=== PATIENT | female | born 1945 | race Caucasian/White ===

== ENCOUNTER 2017-01-27 18:20 | Emergency (ER) | payer MEDICARE, OTHER ==
[~2017-01-27] VITALS: Ht 165.1 cm; Wt 72.0 kg
[2017-01-27 18:30] VITALS: BP 140/76; PULSE 64; RESP 17; TEMP 99.3; O2SAT 97
[2017-01-27 18:43] VITALS: BP 142/76
[2017-01-27] MEDS ORDERED: ATOR40TA16 PO (18:54)
[2017-01-27] MEDS ORDERED: OMEP40CA2 PO (18:54)
[2017-01-27] MEDS ORDERED: METO25TA3 PO (18:54)
[2017-01-27] MEDS ORDERED: RANI300T PO (18:54)
[2017-01-27] MEDS ORDERED: SERT25TA83 PO (18:54)
[2017-01-27] MEDS ORDERED: TRAZ50TA12 PO (18:54)
[2017-01-27] MEDS ORDERED: CIPR-9 PO (18:54)
[2017-01-27] MEDS ORDERED: TRIL150T PO (18:54)
--- NOTE | 2017-01-27 18:56 | PD ---
HPI Chief Complaint: GI Complaint Time Seen by Provider: 18:39 Travel History International Travel<30 days: No Contact w/Intl Traveler<30days: No Traveled to known affect area: No History of Present Illness HPI 8-year-old female is complaining of pain across her abdomen. The pain seems worse on the left side. The pain has been going on for about 2 weeks. She saw her doctor and has been on antibiotics for a week for suspected diverticulitis. She has had a partial left nephrectomy. She had kidney cancer in 2010. She has not had a recent follow-up though she had done well immediately after the surgery. She feels like her stomach is swollen. She feels somewhat weak. She has a history of hypertension. PFS Past Medical History High Cholesterol: Yes Diminished Hearing: No Diverticulitis: Yes GERD: Yes Hypertension: Yes Tetanus Vaccination: Unknown ?: Not Past Surgical History Genitourinary Surgery: Yes (LEFT KIDNEY) Hysterectomy: Yes Social History Alcohol Use: No Tobacco Use: No Substance Use: No Allergies-Medications Reported Meds & Prescriptions Reported Meds & Active Scripts Active Reported Atorvastatin (Atorvastatin Calcium) 40 Mg Tab 40 Mg PO HS Trileptal (Oxcarbazepine) 150 Mg Tab 150 Mg PO DAILY Omeprazole 40 Mg Cap 40 Mg PO DAILY Sertraline (Sertraline HCl) 25 Mg Tab 25 Mg PO DAILY Metoprolol Tartrate 25 Mg Tab 25 Mg PO BID Cipro (Ciprofloxacin HCl) 500 Mg Tab 500 Mg PO BID Ranitidine (Ranitidine HCl) 300 Mg Tab 300 Mg PO DAILY Trazodone (Trazodone HCl) 50 Mg Tab 50 Mg PO HS Review of Systems General / Constitutional: No: Fever, Chills Eyes: No: Diploplia, Blurred Vision HENT: No: Headaches, Vertigo Cardiovascular: No: Chest Pain or Discomfort, Palpitations Respiratory: No: Cough, Shortness of Breath Gastrointestinal: Positive: Nausea, Abdominal Pain Genitourinary: No: Urgency, Frequency Musculoskeletal: No: Myalgias, Arthralgias Skin: No Rash Neurologic: Positive: Weakness Endocrine: No: Heat Intolerance Hematologic/Lymphatic: No: Easy Bruising Physical Exam Narrative GENERAL: Well-developed female SKIN: Focused skin assessment warm/dry. HEAD: Atraumatic. Normocephalic. EYES: Pupils equal and round. No scleral icterus. No injection or drainage. ENT: No nasal bleeding or discharge. Mucous membranes pink and moist. NECK: Trachea midline. No JVD. CARDIOVASCULAR: Regular rate and rhythm. No murmur appreciated. RESPIRATORY: No accessory muscle use. Clear to auscultation. Breath sounds equal bilaterally. GASTROINTESTINAL: Abdomen soft, mild left-sided tenderness, nondistended. Hepatic and splenic margins not palpable. MUSCULOSKELETAL: No obvious deformities. No clubbing. No cyanosis. No edema. NEUROLOGICAL: Awake and alert. No obvious cranial nerve deficits. Motor grossly within normal limits. Normal speech. PSYCHIATRIC: Appropriate mood and affect; insight and judgment normal Data Data Last Documented VS Vital Signs Date Time Temp Pulse Resp B/P (MAP) Pulse Ox O2 Delivery O2 Flow Rate FiO2 01/27/17 18:46 16 01/27/17 18:43 142/76 (98) 01/27/17 18:30 99.3 64 97 Orders Orders Complete Blood Count With Diff (01/27/17 18:53) Comprehensive Metabolic Panel (01/27/17 18:53) Lipase (01/27/17 18:53) Urinalysis - C+S If Indicated (01/27/17 18:53) Ct Abd/Pel W Iv Contrast(Rout) (01/27/17 18:53) Iodixanol 320 Inj (Rad Ct) (Visipaque 32 (01/27/17 19:49) Labs Laboratory Tests Test 01/27/17 19:15 White Blood Count 6.8 TH/MM3 Red Blood Count 3.82 MIL/MM3 Hemoglobin 12.4 GM/DL Hematocrit 35.2 % Mean Corpuscular Volume 92.1 FL Mean Corpuscular Hemoglobin 32.4 PG Mean Corpuscular Hemoglobin Concent 35.2 % Red Cell Distribution Width 12.2 % Platelet Count 259 TH/MM3 Mean Platelet Volume 7.5 FL Neutrophils (%) (Auto) 75.7 % Lymphocytes (%) (Auto) 16.3 % Monocytes (%) (Auto) 5.0 % Eosinophils (%) (Auto) 2.5 % Basophils (%) (Auto) 0.5 % Neutrophils # (Auto) 5.1 TH/MM3 Lymphocytes # (Auto) 1.1 TH/MM3 Monocytes # (Auto) 0.3 TH/MM3 Eosinophils # (Auto) 0.2 TH/MM3 Basophils # (Auto) 0.0 TH/MM3 CBC Comment DIFF FINAL Differential Comment Urine Color STRAW Urine Turbidity CLEAR Urine pH 5.5 Urine Specific [place] 1.010 Urine Protein NEG mg/dL Urine Glucose (UA) NEG mg/dL Urine Ketones NEG mg/dL Urine Occult Blood NEG Urine Nitrite NEG Urine Bilirubin NEG Urine Leukocyte Esterase TRACE Urine RBC 0-2 /hpf Urine WBC 3-5 /hpf Urine Squamous Epithelial Cells 0-5 /hpf Urine Bacteria NONE /hpf Microscopic Urinalysis Comment CULT NOT INDICATED Blood Urea Nitrogen 15 MG/DL Creatinine 0.75 MG/DL Random Glucose 122 MG/DL Total Protein 7.3 GM/DL Albumin 3.9 GM/DL Calcium Level 8.5 MG/DL Alkaline Phosphatase 88 U/L Aspartate Amino Transf (AST/SGOT) 20 U/L Alanine Aminotransferase (ALT/SGPT) 35 U/L Total Bilirubin 0.2 MG/DL Sodium Level 127 MEQ/L Potassium Level 3.5 MEQ/L Chloride Level 94 MEQ/L Carbon Dioxide Level 23.0 MEQ/L Anion Gap 10 MEQ/L Estimat Glomerular Filtration Rate 76 ML/MIN Lipase 236 U/L [facility] Medical Decision Making Medical Screen Exam Complete: Yes Emergency Medical Condition: Yes Medical Record Reviewed: Yes Differential Diagnosis Differential includes nonspecific abdominal pain, diverticulitis, gastroenteritis Narrative Course White count is normal. CT scan is read as negative with exception of partial nephrectomy. Etiology for the pain has not been determined. She may have partially treated diverticulitis. I have recommended that she continue the antibiotic and follow up with Dr. Baez who may send her to a GI doctor. I will prescribe Bentyl Diagnosis Primary Impression: Abdominal pain Qualified Codes: R10.84 - Generalized abdominal pain Scripts Dicyclomine (Dicyclomine) 20 Mg Tab 20 MG PO TID Y for Bowel Management, #20 TAB 0 Refills Prov: Wilfred Darnell MD 01/27/17 Disposition: DISCHARGE HOME Condition: Stable Wilfred Darnell MD Jan 27, 2017 18:56
[2017-01-27 19:21] LABS: BLOOD, URINE NEG (NEG); GLUCOSE,URINE NEG (NEG); KETONE, URINE NEG (NEG); NITRITE,URINE NEG (NEG); PH, URINE 5.5 (5.0-8.5)
[2017-01-27 19:27] LABS: AUTOMATED NEUTROPHIL # 5.1 TH/MM3 (1.8-7.7); BASOPHIL % 0.5 % (0.0-2.0); EOSINOPHIL # 0.2 TH/MM3 (0-0.4); EOSINOPHIL % 2.5 % (0.0-4.0); HEMATOCRIT 35.2 % (35.0-46.0); LYMPH % 16.3 % (9.0-44.0); LYMPHOCYTE # 1.1 TH/MM3 (1.0-4.8); MEAN CELL VOLUME 92.1 FL (80.0-100.0); MEAN CORPUSCULAR HEMOGLOBIN 32.4 PG (27.0-34.0); MEAN CORPUSCULAR HGB CONC 35.2 % (32.0-36.0); NEUT % 75.7 % (16.0-70.0); PLATELET COUNT 259 TH/MM3 (150-450); RED BLOOD COUNT 3.82 MIL/MM3 (4.00-5.30); RED CELL DISTRIBUTION WIDTH 12.2 % (11.6-17.2); WHITE BLOOD COUNT 6.8 TH/MM3 (4.0-11.0)
[2017-01-27 19:28] LABS: CHLORIDE 94 MEQ/L (98-107); HEMO FLAGS DIFF FINAL; POTASSIUM 3.5 MEQ/L (3.5-5.1); SODIUM (NA) 127 MEQ/L (136-145)
[2017-01-27 19:32] LABS: ANION GAP 10 MEQ/L (5-15); BLOOD UREA NITROGEN 15 MG/DL (7-18)
[2017-01-27 19:33] LABS: URINE COLOR STRAW (YELLW/STRAW)
[2017-01-27 19:34] LABS: COMMENT (UR) CULT NOT INDICATED; CULTURE IF INDICATED CULT NOT INDICATED; RBC, URINE 0-2 /hpf (0-3); SQUAMOUS EPITHELIAL CELL URINE 0-5 /hpf (0-5)
[2017-01-27 19:35] LABS: ALT (GPT) 35 U/L (10-53); AST (GOT) 20 U/L (15-37); GLOMERULAR FILTRATION RATE 76 ML/MIN (>89)
[2017-01-27 19:36] LABS: TOTAL BILIRUBIN ADULT 0.2 MG/DL (0.2-1.0)
[2017-01-27 19:38] LABS: ALKALINE PHOSPHATASE 88 U/L (45-117)
[2017-01-27] MEDS ORDERED: IODIXANOL 320 MG/ML 10 ML VIAL (for Rad CT) IV ONE (19:49)
--- NOTE | 2017-01-27 20:16 | RADRPT ---
EXAM DATE/TIME: 01/27/2017 19:45 [facility] COMPARISON: No previous studies available for comparison. INDICATIONS : Left sided abdomen pain. IV CONTRAST: 50 cc Visipaque (iodixanol) IV ORAL CONTRAST: No oral contrast ingested. RADIATION DOSE: 11.92 CTDIvol (mGy) MEDICAL HISTORY : Hypertension. Diverticulitis. Carcinoma, renal. SURGICAL HISTORY : Partial nephrectomy, left. ENCOUNTER: Initial ACUITY: 2 weeks PAIN SCALE: 5/10 LOCATION: Left abdomen TECHNIQUE: Volumetric scanning of the abdomen and pelvis was performed. Using automated exposure control and ad justment of the mA and/or kV according to patient size, radiation dose was kept as low as reasonably achievable to obtain optimal diagnostic quality images. DICOM format image data is available electro nically for review and comparison. FINDINGS: LOWER LUNGS: The visualized lower lungs are clear. LIVER: Homogeneous density without lesion. There is no dilation of the biliary tree. No calcified gallston es. SPLEEN: Normal size without lesion. PANCREAS: Within normal limits. KIDNEYS: Partial left nephrectomy. 2 subcentimeter cysts right kidney. The kidneys are functioning.. There is no mass, stone or hydronephrosis. ADRENAL GLANDS: Within normal limits. VASCULAR: There is no aortic aneurysm. BOWEL/MESENTERY: The stomach, small bowel, and colon demonstrate no acute abnormality. There is no free intraperitone al air or fluid. The appendix is unremarkable. No inflammatory changes. ABDOMINAL WALL: Within normal limits. RETROPERITONEUM: There is no lymphadenopathy. BLADDER: No wall thickening or mass. REPRODUCTIVE: Within normal limits. INGUINAL: There is no lymphadenopathy or hernia. MUSCULOSKELETAL: Within normal limits for patient age. CONCLUSION: 1. Partial left nephrectomy. No evidence of hydronephrosis. 2. Otherwise, unremarkable exam for patient's age. Jose Fabian MD on January 27, 2017 at 20:11 Board Certified Radiologist. This report was verified electronically.
[2017-01-27] MEDS ORDERED: DICY20TA10 PO (20:26)
[2017-01-27 20:38] VITALS: BP 145/84
== END 2017-01-27 20:38 | disposition home or self-care (01) ==
LOC: PHED 18:20
DX: R10.84 Generalized abdominal pain (principal); I10 Essential (primary) hypertension; E78.00 Pure hypercholesterolemia, unspecified; K21.9 Gastro-esophageal reflux disease without esophagitis; Z85.528 Personal history of other malignant neoplasm of kidney
CPT/HCPCS: 74177; 80053; 81001; 83690; 85025; 99285; Q9967

== ENCOUNTER 2017-07-28 18:09 | Emergency (ER) | payer MEDICARE, OTHER ==
[~2017-07-28] VITALS: Ht 165.1 cm; Wt 69.8 kg
[~2017-07-28 18:09] MED LIST: ATOR40TA16 PO; CIPR-9 PO; DICY20TA10 PO; METO25TA3 PO; OMEP40CA2 PO; RANI300T PO; SERT25TA83 PO; TRAZ50TA12 PO; TRIL150T PO
[2017-07-28 18:18] VITALS: BP 181/83; PULSE 63; RESP 16; TEMP 98.2; O2SAT 96
[2017-07-28] MEDS ORDERED: CYMB30CA PO (19:12)
[2017-07-28] MEDS ORDERED: METO25TA3 PO (19:12)
[2017-07-28] MEDS ORDERED: RANI300T PO ×2 (19:12→19:15)
[2017-07-28] MEDS ORDERED: OMEP40CA2 (19:12)
[2017-07-28] MEDS ORDERED: TRIL150T PO (19:12)
[2017-07-28] MEDS ORDERED: TRAZ50TA12 PO (19:12)
[2017-07-28] MEDS ORDERED: AMOX875T PO (19:15)
[2017-07-28] MEDS ORDERED: MECL-62 PO (19:15)
[2017-07-28 19:23] VITALS: BP 138/77; PULSE 60; RESP 16; O2SAT 98
[2017-07-28] MEDS ORDERED: ONDANSETRON HCL 4 MG/2 ML VIAL IVP ONE (20:30)
[2017-07-28] MEDS ORDERED: SODIUM CHLORIDE 0.9% FLUSH 10 ML FLUSH IVF PRN (20:30)
--- NOTE | 2017-07-28 20:30 | PD ---
HPI Chief Complaint: Dizziness Time Seen by Provider: 20:25 Travel History International Travel<30 days: No Contact w/Intl Traveler<30days: No Traveled to known affect area: No History of Present Illness HPI 72-year-old female presents to the emergency department by private transportation for complaint of intermittent dizziness over the past 1-2 weeks since diagnosis of pneumonia. Patient is currently on amoxicillin and will take her last dose of amoxicillin tomorrow. Patient is also had left ear discomfort and some right eye intermittent shooting pain. No headache no visual disturbance no double vision or loss of vision no photophobia. Patient states dizziness is intermittent brief and rapid and duration. Patient states at times it makes her feel off balance. Patient has been followed in the urgent care and was instructed to come to the emergency room because she may need to have a CT. Patient denies any fever or chills. Patient denies any shortness of breath. Patient denies any chest pain or pleuritic chest pain. Patient denies any palpitations or diaphoresis. Patient had no nausea or vomiting. Patient denies any sinus pressure or drainage or sore throat. Patient has had no change in her chronic medications which include Cymbalta for history of depression and trazodone for insomnia. Patient denies any upper extremity or lower extremity numbness tingling or weakness or ataxia of gait. Patient has had no sudden onset worst of her thunderclap headache. No report of neck pain or injury. [facility] Past Medical History Narrative Medical Dyslipidemia depression insomnia hypertension GERD diverticulitis; hysterectomy , partial left nephrectomy; occasional alcohol use; nursing notes reviewed High Cholesterol: Yes Diminished Hearing: No Diverticulitis: Yes GERD: Yes Hypertension: Yes Tetanus Vaccination: < 5 Years Influenza Vaccination: No ?: Not Past Surgical History Genitourinary Surgery: Yes (LEFT KIDNEY) Hysterectomy: Yes Other Surgery: Yes (part of left kidney removed) Social History Alcohol Use: Yes (glass of wine QD) Tobacco Use: No Substance Use: No Allergies-Medications (Allergen,Severity, Reaction): Coded Allergies: Sulfa (Sulfonamide Antibiotics) (Verified Allergy, Unknown, TOLD IN 60'S, 07/28/17) Reported Meds & Prescriptions Reported Meds & Active Scripts Active Reported Meclizine (Meclizine HCl) 25 Mg Tab 25 Mg PO DIRECTED PRN Amoxicillin 875 Mg Tab 875 Mg PO BID Ranitidine (Ranitidine HCl) 300 Mg Tab 300 Mg PO DAILY Trileptal (Oxcarbazepine) 150 Mg Tab 75 Mg PO DAILY Trazodone (Trazodone HCl) 50 Mg Tab 50 Mg PO HS Omeprazole 40 Mg Cap 40 Mg DAILY Metoprolol Tartrate 25 Mg Tab 25 Mg PO DAILY Cymbalta DR (Duloxetine HCl) 30 Mg Capdr 30 Mg PO DAILY Review of Systems Except as stated in HPI: all other systems reviewed are Neg General / Constitutional: No: Fever, Chills HENT: Positive: Vertigo, Lightheadedness, No: Headaches, Congestion Cardiovascular: No: Chest Pain or Discomfort, Palpitations, Diaphoresis, Syncope Respiratory: No: Shortness of Breath Gastrointestinal: No: Nausea, Vomiting Genitourinary: No: Dysuria Skin: No Rash Neurologic: Positive: Weakness, Dizziness, No: Syncope, Focal Abnormalities, Coordination Problem, Change in Mentation, Slurred Speech, Paresthesia Psychiatric: No: Anxiety Hematologic/Lymphatic: No: Lymph Node Enlargement Physical Exam Narrative GENERAL: Well-developed well-nourished female in no acute distress or respiratory distress; GCS 15 SKIN: Warm and dry. HEAD: Atraumatic. Normocephalic. EYES: Pupils equal and round. No scleral icterus. No injection or drainage. ENT: No nasal bleeding or discharge. Mucous membranes pink and moist. NECK: Trachea midline. No JVD. CARDIOVASCULAR: Regular rate and rhythm. RESPIRATORY: No accessory muscle use. Clear to auscultation. Breath sounds equal bilaterally. GASTROINTESTINAL: Abdomen soft, non-tender, nondistended. Hepatic and splenic margins not palpable. MUSCULOSKELETAL: Extremities without clubbing, cyanosis, or edema. No obvious deformities. NEUROLOGICAL: Awake and alert. No obvious cranial nerve deficits. Motor grossly within normal limits. Five out of 5 muscle strength in the arms and legs. No limb ataxia. No pronator drift. DTRs 2+ and equal bilaterally without clonus. Sensory exam grossly intact as tested. Normal speech. PSYCHIATRIC: Appropriate mood and affect; insight and judgment normal. Data Data Last Documented VS Vital Signs Date Time Temp Pulse Resp B/P (MAP) Pulse Ox O2 Delivery O2 Flow Rate FiO2 07/28/17 23:15 65 18 150/82 (104) 97 07/28/17 21:13 Room Air 07/28/17 18:18 98.2 Orders Orders Electrocardiogram (07/28/17 20:25) Complete Blood Count With Diff (07/28/17 20:25) Comprehensive Metabolic Panel (07/28/17 20:25) Magnesium (Mg) (07/28/17 20:25) Ckmb (Isoenzyme) Profile (07/28/17 20:25) Troponin I (07/28/17 20:25) Act Partial Throm Time (Ptt) (07/28/17 20:25) Prothrombin Time / Inr (Pt) (07/28/17 20:25) Urinalysis - C+S If Indicated (07/28/17 20:25) Chest, Single Ap (07/28/17 20:25) Ct Brain W/O Iv Contrast(Rout) (07/28/17 20:25) Ecg Monitoring (07/28/17 20:25) Iv Access Insert/Monitor (07/28/17 20:25) Oximetry (07/28/17 20:25) Ondansetron Inj (Zofran Inj) (07/28/17 20:30) Sodium Chloride 0.9% Flush (Ns Flush) (07/28/17 20:30) Thyroid Stimulating Hormone (07/28/17 20:25) Labs Laboratory Tests Test 07/28/17 20:49 07/28/17 20:52 White Blood Count 5.5 TH/MM3 Red Blood Count 3.88 MIL/MM3 Hemoglobin 12.2 GM/DL Hematocrit 36.0 % Mean Corpuscular Volume 92.8 FL Mean Corpuscular Hemoglobin 31.5 PG Mean Corpuscular Hemoglobin Concent 33.9 % Red Cell Distribution Width 12.3 % Platelet Count 258 TH/MM3 Mean Platelet Volume 8.1 FL Neutrophils (%) (Auto) 53.6 % Lymphocytes (%) (Auto) 30.4 % Monocytes (%) (Auto) 7.9 % Eosinophils (%) (Auto) 7.3 % Basophils (%) (Auto) 0.8 % Neutrophils # (Auto) 3.0 TH/MM3 Lymphocytes # (Auto) 1.7 TH/MM3 Monocytes # (Auto) 0.4 TH/MM3 Eosinophils # (Auto) 0.4 TH/MM3 Basophils # (Auto) 0.0 TH/MM3 CBC Comment DIFF FINAL Differential Comment Prothrombin Time 10.0 SEC Prothromb Time International Ratio 1.0 RATIO Activated Partial Thromboplast Time 26.8 SEC Blood Urea Nitrogen 16 MG/DL Creatinine 0.85 MG/DL Random Glucose 93 MG/DL Total Protein 7.5 GM/DL Albumin 4.0 GM/DL Calcium Level 8.5 MG/DL Magnesium Level 2.4 MG/DL Alkaline Phosphatase 82 U/L Aspartate Amino Transf (AST/SGOT) 20 U/L Alanine Aminotransferase (ALT/SGPT) 27 U/L Total Bilirubin 0.2 MG/DL Sodium Level 138 MEQ/L Potassium Level 3.7 MEQ/L Chloride Level 104 MEQ/L Carbon Dioxide Level 28.9 MEQ/L Anion Gap 5 MEQ/L Estimat Glomerular Filtration Rate 66 ML/MIN Total Creatine Kinase 77 U/L Troponin I LESS THAN 0.02 NG/ML Thyroid Stimulating Hormone 3rd Gen 1.710 uIU/ML Urine Color YELLOW Urine Turbidity CLEAR Urine pH 7.0 Urine Specific [place] 1.011 Urine Protein NEG mg/dL Urine Glucose (UA) NEG mg/dL Urine Ketones NEG mg/dL Urine Occult Blood NEG Urine Nitrite NEG Urine Bilirubin NEG Urine Leukocyte Esterase SMALL Urine WBC 0-2 /hpf Urine Squamous Epithelial Cells 0-5 /hpf Microscopic Urinalysis Comment CULT NOT INDICATED MDM Medical Decision Making Medical Screen Exam Complete: Yes Emergency Medical Condition: Yes Medical Record Reviewed: Yes Interpretation(s) EKG: Sinus bradycardia rate [address] elevation noted rare unifocal PVC Last Impressions Head CT 07/28/172024 Signed Impressions: Service Date/Time: Friday, July 28, 2017 20:55 - CONCLUSION: 1. No acute intracranial abnormality. Kevan Noel MD Chest X-Ray 07/28/172024 Signed Impressions: Service Date/Time: Friday, July 28, 2017 20:46 - CONCLUSION: 1. Chronic appearing interstitial changes and mild cardiomegaly. No acute abnormality. Kevan Noel MD CBC & BMP Diagram 07/28/17 20:49 Total Protein 7.5, Albumin 4.0, Calcium Level 8.5, Magnesium Level 2.4, Alkaline Phosphatase 82, Aspartate Amino Transf (AST/SGOT) 20, Alanine Aminotransferase (ALT/SGPT) 27, Total Bilirubin 0.2 Vital Signs Date Time Temp Pulse Resp B/P (MAP) Pulse Ox O2 Delivery O2 Flow Rate FiO2 07/28/17 23:15 65 18 150/82 (104) 97 07/28/17 21:13 60 18 163/80 (107) 98 Room Air 07/28/17 20:52 97 Room Air 07/28/17 19:23 60 16 138/77 (97) 98 Room Air 07/28/17 18:18 98.2 63 16 181/83 (115) 96 Differential Diagnosis Dizziness, vertigo, Mnire's, sinusitis, viral syndrome, TIA, CVA, arrhythmia, thyroid dysfunction Narrative Course Patient placed on teletypesetter monitor IV access obtained specimens collected and sent for resulting Diagnosis Primary Impression: Dizziness Referrals: Primary Care Physician call for appointment Patient Instructions: General Instructions Additional Instructions: Increase fluid hydration Take medication as prescribed as needed for dizziness Take medication as prescribed as needed for nausea and/or vomiting Return to the emergency department for any concerns or change in condition Med/Other Pt SpecificInfo: Prescription(s) given Scripts Ondansetron Odt (Zofran Odt) 4 Mg Tab 4 MG SL Q6HR Y for Nausea/Vomiting, #10 TAB 0 Refills Prov: Brigette Barrera MD 07/28/17 Disposition: 01 DISCHARGE HOME Condition: Stable Brigette Barrera MD Jul 28, 2017 20:30
[2017-07-28 20:52] VITALS: O2SAT 97
[2017-07-28 21:00] LABS: BASOPHIL % 0.8 % (0.0-2.0); EOSINOPHIL # 0.4 TH/MM3 (0-0.4); EOSINOPHIL % 7.3 % (0.0-4.0); HEMOGLOBIN 12.2 GM/DL (11.6-15.3); LYMPH % 30.4 % (9.0-44.0); LYMPHOCYTE # 1.7 TH/MM3 (1.0-4.8); MEAN CELL VOLUME 92.8 FL (80.0-100.0); MEAN CORPUSCULAR HEMOGLOBIN 31.5 PG (27.0-34.0); MEAN CORPUSCULAR HGB CONC 33.9 % (32.0-36.0); MEAN PLATELET VOLUME 8.1 FL (7.0-11.0); MONO % 7.9 % (0.0-8.0); MONOCYTE # 0.4 TH/MM3 (0-0.9); NEUT % 53.6 % (16.0-70.0); PLATELET COUNT 258 TH/MM3 (150-450); RED BLOOD COUNT 3.88 MIL/MM3 (4.00-5.30); RED CELL DISTRIBUTION WIDTH 12.3 % (11.6-17.2); WHITE BLOOD COUNT 5.5 TH/MM3 (4.0-11.0)
[2017-07-28 21:04] LABS: CHLORIDE 104 MEQ/L (98-107); SODIUM (NA) 138 MEQ/L (136-145)
[2017-07-28 21:07] LABS: BICARBONATE 28.9 MEQ/L (21.0-32.0); BLOOD UREA NITROGEN 16 MG/DL (7-18); CALCIUM 8.5 MG/DL (8.5-10.1); GLUCOSE,RANDOM 93 MG/DL (74-106); MAGNESIUM 2.4 MG/DL (1.5-2.5)
--- NOTE | 2017-07-28 21:08 | RADRPT ---
EXAM DATE/TIME: 07/28/2017 20:46 [facility] COMPARISON: No previous studies available for comparison. INDICATIONS : Dizziness for 10 days MEDICAL HISTORY : None. SURGICAL HISTORY : None. ENCOUNTER: Initial ACUITY: 1 week PAIN SCORE: 0/10 LOCATION: Bilateral chest FINDINGS: The heart is mildly enlarged. The lungs demonstrate mild chronic interstitial changes but are otherwi se clear. The visualized bony structures are grossly intact. CONCLUSION: 1. Chronic appearing interstitial changes and mild cardiomegaly. No acute abnormality. Kevan oNel MD on July 28, 2017 at 21:06 Board Certified Radiologist. This report was verified electronically.
[2017-07-28 21:10] LABS: ALT (GPT) 27 U/L (10-53); AST (GOT) 20 U/L (15-37)
[2017-07-28 21:11] LABS: CREATININE 0.85 MG/DL (0.50-1.00); GLOMERULAR FILTRATION RATE 66 ML/MIN (>89)
[2017-07-28 21:12] LABS: TOTAL BILIRUBIN ADULT 0.2 MG/DL (0.2-1.0); TOTAL PROTEIN 7.5 GM/DL (6.4-8.2)
[2017-07-28 21:13] VITALS: BP 163/80; PULSE 60; RESP 18; O2SAT 98
[2017-07-28 21:13] LABS: ALKALINE PHOSPHATASE 82 U/L (45-117)
[2017-07-28 21:16] LABS: TROPONIN I LESS THAN 0.02 NG/ML (0.02-0.05)
--- NOTE | 2017-07-28 21:30 | RADRPT ---
EXAM DATE/TIME: 07/28/2017 20:55 [facility] COMPARISON: CT ABDOMEN & PELVIS W CONTRAST, January 27, 2017, 19:45. INDICATIONS : Dizziness. RADIATION DOSE: 60.41 CTDIvol (mGy) MEDICAL HISTORY : Hypertension. SURGICAL HISTORY : None. ENCOUNTER: Initial ACUITY: 1 week PAIN SCALE: 0/10 LOCATION: cranial TECHNIQUE: Multiple contiguous axial images were obtained of the head. Using automated exposure control and adj ustment of the mA and/or kV according to patient size, radiation dose was kept as low as reasonably a chievable to obtain optimal diagnostic quality images. DICOM format image data is available electro nically for review and comparison. FINDINGS: CEREBRUM: The ventricles are normal for age. No evidence of midline shift, mass lesion, hemorrhage or acute in farction. No extra-axial fluid collections are seen. POSTERIOR FOSSA: The cerebellum and brainstem are intact. The 4th ventricle is midline. The cerebellopontine angle i s unremarkable. EXTRACRANIAL: The visualized portion of the orbits is intact. SKULL: The calvaria is intact. No evidence of skull fracture. CONCLUSION: 1. No acute intracranial abnormality. Kevan Noel MD on July 28, 2017 at 21:28 Board Certified Radiologist. This report was verified electronically.
[2017-07-28 21:56] LABS: BILIRUBIN, URINE NEG (NEG); BLOOD, URINE NEG (NEG); GLUCOSE,URINE NEG (NEG); KETONE, URINE NEG (NEG); NITRITE,URINE NEG (NEG); URINE LEUKOCYTE ESTERASE SMALL (NEG)
[2017-07-28 21:58] LABS: URINE COLOR YELLOW (YELLW/STRAW)
[2017-07-28 22:00] LABS: SQUAMOUS EPITHELIAL CELL URINE 0-5 /hpf (0-5); WBC, URINE 0-2 /hpf (0-5)
[2017-07-28 23:15] VITALS: BP 150/82
[2017-07-28] MEDS ORDERED: ZOFR4TAB3 SL (23:27)
--- NOTE | 2017-07-29 08:05 | EKG ---
Date Performed: 07/28/2017 Time Performed: 21:13:56 PTAGE: 72 years EKG: SINUS BRADYCARDIA MINIMAL VOLTAGE CRITERIA FOR LVH, CONSIDER NORMAL VARIANT BORDERLINE ECG NO PREVIOUS TRACING DOCTOR: Trinh Kathleen Interpretating Date/Time 07/29/2017 08:02:21
== END 2017-07-28 23:48 | disposition home or self-care (01) ==
LOC: PHED 18:09
DX: R42 Dizziness and giddiness (principal); R00.1 Bradycardia, unspecified; I10 Essential (primary) hypertension; F32.9 Major depressive disorder, single episode, unspecified; E78.00 Pure hypercholesterolemia, unspecified; Z88.2 Allergy status to sulfonamides
CPT/HCPCS: 70450; 71045; 80053; 81001; 82550; 83735; 84443; 84484; 85025; 85610; 85730; 93005; 96374; 99285; J2405

== ENCOUNTER 2017-09-16 22:43 | Emergency (ER) | payer MEDICARE, OTHER ==
[~2017-09-16 22:43] MED LIST changes: +AMOX875T PO; -ATOR40TA16 PO; -CIPR-9 PO; +CYMB30CA PO; -DICY20TA10 PO; +MECL-62 PO; +OMEP40CA2; -OMEP40CA2 PO; -SERT25TA83 PO; +ZOFR4TAB3 SL
[2017-09-16 23:42] VITALS: BP 203/88; PULSE 65; RESP 16; TEMP 99.3; O2SAT 95
[2017-09-17] MEDS ORDERED: OXCA150T PO (00:45)
[2017-09-17 01:35] VITALS: BP 136/72; PULSE 62; RESP 16; O2SAT 98
[2017-09-17 02:07] VITALS: BP 144/70; PULSE 65; O2SAT 97
[2017-09-17 02:37] VITALS: BP 151/75; PULSE 65
[2017-09-17 03:07] VITALS: BP 151/76; PULSE 65; RESP 16; O2SAT 99
[2017-09-17] MEDS ORDERED: SODIUM CHLORIDE 0.9% FLUSH 10 ML FLUSH IVF PRN (03:30)
--- NOTE | 2017-09-17 03:41 | PD ---
HPI Chief Complaint: Hypertension Time Seen by Provider: 03:15 Travel History International Travel<30 days: No Contact w/Intl Traveler<30days: No Traveled to known affect area: No History of Present Illness HPI 72-year-old female presents to the emergency department complaining of elevated blood pressure. Patient states the last 24 hours she has monitor blood pressure and it has been intermittently elevated. Patient takes metoprolol twice daily. Patient took an extra dose of metoprolol tonight for elevated blood pressure. Patient states that during physical therapy yesterday her physical therapist mentioned that her blood pressure is very elevated. Patient states she is unwell for the past 24 hours or so but does not report specifically headache visual disturbance altered mental status speech disturbance difficulty swallowing to balance disturbance upper or lower extremity numbness tingling or weakness nausea or vomiting. Patient has had some kind of funny sensation in her chest but denies any chest pain and rates this funny sensation as a 5/10 intensity. Patient states that she only notes this when she notes her blood pressure to be elevated. Patient denies any shortness of breath sweats referred neck jaw back shoulder arm pain. Patient did contact her primary care provider's office and has an appointment on . Patient had no injury or fall and no recent febrile illness or respiratory illness. PFSH Past Medical History Narrative Medical Anxiety depression dyslipidemia hypertension vertigo hysterectomy nephrectomy alcohol use; nursing notes reviewed Anxiety: Yes Depression: Yes High Cholesterol: Yes Diminished Hearing: No Diverticulitis: Yes GERD: Yes Hypertension: Yes Tetanus Vaccination: < 5 Years Influenza Vaccination: No ?: Not : 1 Para: 1 Past Surgical History Genitourinary Surgery: Yes (LEFT KIDNEY 20 % REMOVED) Hysterectomy: Yes Other Surgery: Yes (part of left kidney removed) Social History Alcohol Use: Yes (glass of wine QD) Tobacco Use: No Substance Use: No Allergies-Medications (Allergen,Severity, Reaction): Coded Allergies: Sulfa (Sulfonamide Antibiotics) (Verified Allergy, Unknown, TOLD IN 60'S, 09/17/17) Reported Meds & Prescriptions Reported Meds & Active Scripts Active Clonidine (Clonidine HCl) 0.1 Mg Tab 0.1 Mg PO Q12HR PRN Reported Oxcarbazepine 150 Mg Tab 150 Mg PO BID Meclizine (Meclizine HCl) 25 Mg Tab 25 Mg PO DIRECTED PRN Ranitidine (Ranitidine HCl) 300 Mg Tab 300 Mg PO DAILY Trazodone (Trazodone HCl) 50 Mg Tab 50 Mg PO HS Omeprazole 40 Mg Cap 40 Mg DAILY Metoprolol Tartrate 25 Mg Tab 25 Mg PO DAILY Cymbalta DR (Duloxetine HCl) 30 Mg Capdr 30 Mg PO DAILY Review of Systems Except as stated in HPI: all other systems reviewed are Neg Physical Exam Narrative GENERAL: Well-developed well-nourished female in no acute distress no respiratory distress; GCS 15 SKIN: Warm and dry. HEAD: Atraumatic. Normocephalic. EYES: Pupils equal and round. No scleral icterus. No injection or drainage. ENT: No nasal bleeding or discharge. Mucous membranes pink and moist. NECK: Trachea midline. No JVD. CARDIOVASCULAR: Regular rate and rhythm. RESPIRATORY: No accessory muscle use. Clear to auscultation. Breath sounds equal bilaterally. GASTROINTESTINAL: Abdomen soft, non-tender, nondistended. Hepatic and splenic margins not palpable. MUSCULOSKELETAL: Extremities without clubbing, cyanosis, or edema. No obvious deformities. NEUROLOGICAL: Awake and alert. No obvious cranial nerve deficits. Motor grossly within normal limits. Five out of 5 muscle strength in the arms and legs. DTRs 2+ and equal. Sensory exam intact as tested. No limb ataxia. No pronator drift. Normal speech. PSYCHIATRIC: Appropriate mood and affect; insight and judgment normal. Data Data Last Documented VS Vital Signs Date Time Temp Pulse Resp B/P (MAP) Pulse Ox O2 Delivery O2 Flow Rate FiO2 09/17/17 04:53 66 16 158/77 (104) 98 Room Air 09/16/17 23:42 99.3 Orders Orders Electrocardiogram (09/17/17 03:16) Basic Metabolic Panel (Bmp) (09/17/17 03:16) Complete Blood Count With Diff (09/17/17 03:16) Magnesium (Mg) (09/17/17 03:16) Ckmb (Isoenzyme) Profile (09/17/17 03:16) Troponin I (09/17/17 03:16) Act Partial Throm Time (Ptt) (09/17/17 03:16) Prothrombin Time / Inr (Pt) (09/17/17 03:16) Urinalysis - C+S If Indicated (09/17/17 03:16) Chest, Single Ap (09/17/17 03:16) Ct Brain W/O Iv Contrast(Rout) (09/17/17 03:16) Ecg Monitoring (09/17/17 03:16) Iv Access Insert/Monitor (09/17/17 03:16) Oximetry (09/17/17 03:16) Sodium Chloride 0.9% Flush (Ns Flush) (09/17/17 03:30) Ed Discharge Order (09/17/17 04:51) Labs Laboratory Tests Test 09/17/17 03:25 White Blood Count 5.2 TH/MM3 Red Blood Count 3.87 MIL/MM3 Hemoglobin 11.9 GM/DL Hematocrit 36.0 % Mean Corpuscular Volume 93.1 FL Mean Corpuscular Hemoglobin 30.8 PG Mean Corpuscular Hemoglobin Concent 33.1 % Red Cell Distribution Width 12.6 % Platelet Count 269 TH/MM3 Mean Platelet Volume 7.5 FL Neutrophils (%) (Auto) 56.5 % Lymphocytes (%) (Auto) 27.7 % Monocytes (%) (Auto) 9.8 % Eosinophils (%) (Auto) 5.3 % Basophils (%) (Auto) 0.7 % Neutrophils # (Auto) 3.0 TH/MM3 Lymphocytes # (Auto) 1.4 TH/MM3 Monocytes # (Auto) 0.5 TH/MM3 Eosinophils # (Auto) 0.3 TH/MM3 Basophils # (Auto) 0.0 TH/MM3 CBC Comment DIFF FINAL Differential Comment Prothrombin Time 9.9 SEC Prothromb Time International Ratio 1.0 RATIO Activated Partial Thromboplast Time 26.4 SEC Urine Color YELLOW Urine Turbidity CLEAR Urine pH 5.5 Urine Specific Taylor 1.010 Urine Protein NEG mg/dL Urine Glucose (UA) NEG mg/dL Urine Ketones NEG mg/dL Urine Occult Blood NEG Urine Nitrite NEG Urine Bilirubin NEG Urine Urobilinogen 0.2 MG/DL Urine Leukocyte Esterase TRACE Urine RBC 0-3 /hpf Urine WBC 3-5 /hpf Urine Squamous Epithelial Cells 0-5 /hpf Urine Bacteria NONE /hpf Microscopic Urinalysis Comment CULT NOT INDICATED Blood Urea Nitrogen 16 MG/DL Creatinine 0.97 MG/DL Random Glucose 88 MG/DL Calcium Level 8.8 MG/DL Magnesium Level 2.5 MG/DL Sodium Level 135 MEQ/L Potassium Level 4.1 MEQ/L Chloride Level 101 MEQ/L Carbon Dioxide Level 28.2 MEQ/L Anion Gap 6 MEQ/L Estimat Glomerular Filtration Rate 57 ML/MIN Total Creatine Kinase 88 U/L Troponin I LESS THAN 0.02 NG/ML MDM Medical Decision Making Medical Screen Exam Complete: Yes Emergency Medical Condition: Yes Medical Record Reviewed: Yes Interpretation(s) EKG normal sinus rhythm rate [address] elevation or injury pattern first- degree AV block Troponin I: Less than 0.02, not elevated Coagulation studies normal range Urinalysis is within normal limits Last Impressions Head CT 09/17/17315 Signed Impressions: Service Date/Time: Sunday, September 17, 2017 03:31 - CONCLUSION: Stable brain appearance. No acute intracranial findings You Daniels MD Chest X-Ray 09/17/17315 Signed Impressions: Service Date/Time: Sunday, September 17, 2017 03:40 - CONCLUSION: No acute disease. You Daniels MD CBC & BMP Diagram 09/17/17 03:25 Calcium Level 8.8, Magnesium Level 2.5 Vital Signs Date Time Temp Pulse Resp B/P (MAP) Pulse Ox O2 Delivery O2 Flow Rate FiO2 09/17/17 04:53 66 16 158/77 (104) 98 Room Air 09/17/17 03:50 61 16 183/76 (111) 99 Room Air 09/17/17 03:07 65 16 151/76 (101) 99 Room Air 09/17/17 02:37 65 151/75 (100) 09/17/17 02:07 65 144/70 (94) 97 Room Air 09/17/17 01:35 62 16 136/72 (93) 98 Room Air 09/16/17 23:42 99.3 65 16 203/88 (126) 95 Differential Diagnosis Uncontrolled hypertension, hypertensive crisis, TIA, ACS, pneumonia, arrhythmia , electrolyte disturbance, vertigo Narrative Course Patient placed on clinical research monitor IV access obtained specimens collected and sent for resulting imaging study ordered Patient resting comfortably waiting on lab results Patient aware of all diagnostic results and discussion with observation admission for chest pain center protocol and may require echocardiogram and carotid ultrasound as well as MRI; patient is aware of the limitations of a one- time EKG and cardiac enzymes but states that she is not willing to stay at this time for further evaluation and has appointment on the with her primary care provider or return to the emergency department should she have any recurrent symptoms this was discussed in detail as recurrent symptoms may be actual significant event DE CVA patient states she is aware of the risk and is not willing to stay at this time. Patient does have access to primary care provider and is taking medication for blood pressure additional prescription for clonidine to take as needed will be provided and patient is encouraged to take an aspirin daily. Diagnosis Primary Impression: Hypertension Referrals: Primary Care Physician 1 day Patient Instructions: General Instructions Additional Instructions: Increase fluid hydration Follow-up with your primary care provider call office in a.m. to schedule/ confirm follow-up Take clonidine as prescribed as needed for elevated pressure do not take at the same time is taking metoprolol Return to the emergency department for any concerns or change in condition Recommend taking aspirin 81 mg daily May take acetaminophen/Tylenol as needed for minor discomfort or for fever 100.4 F or greater Med/Other Pt SpecificInfo: Prescription(s) given Scripts Clonidine (Clonidine) 0.1 Mg Tab 0.1 MG PO Q12HR Y for SBP>180, DBP>95, #3 TAB 0 Refills Prov: Brigette Barrera MD 09/17/17 Disposition: 01 DISCHARGE HOME Condition: Stable Brigette Barrera MD Sep 17, 2017 03:41
[2017-09-17 03:42] LABS: BILIRUBIN, URINE NEG (NEG); BLOOD, URINE NEG (NEG); GLUCOSE,URINE NEG (NEG); KETONE, URINE NEG (NEG); NITRITE,URINE NEG (NEG); PH, URINE 5.5 (5.0-8.5); URINE COLOR YELLOW (YELLW/STRAW); URINE LEUKOCYTE ESTERASE TRACE (NEG)
[2017-09-17 03:43] LABS: BASOPHIL % 0.7 % (0.0-2.0); EOSINOPHIL # 0.3 TH/MM3 (0-0.4); EOSINOPHIL % 5.3 % (0.0-4.0); HEMOGLOBIN 11.9 GM/DL (11.6-15.3); LYMPH % 27.7 % (9.0-44.0); LYMPHOCYTE # 1.4 TH/MM3 (1.0-4.8); MEAN CELL VOLUME 93.1 FL (80.0-100.0); MEAN CORPUSCULAR HEMOGLOBIN 30.8 PG (27.0-34.0); MEAN CORPUSCULAR HGB CONC 33.1 % (32.0-36.0); MEAN PLATELET VOLUME 7.5 FL (7.0-11.0); MONO % 9.8 % (0.0-8.0); MONOCYTE # 0.5 TH/MM3 (0-0.9); NEUT % 56.5 % (16.0-70.0); PLATELET COUNT 269 TH/MM3 (150-450); RED BLOOD COUNT 3.87 MIL/MM3 (4.00-5.30); RED CELL DISTRIBUTION WIDTH 12.6 % (11.6-17.2); WHITE BLOOD COUNT 5.2 TH/MM3 (4.0-11.0)
--- NOTE | 2017-09-17 03:44 | RADRPT ---
EXAM DATE/TIME: 09/17/2017 03:31 [facility] COMPARISON: CT BRAIN W/O CONTRAST, July 28, 2017, 20:55. INDICATIONS : Dizziness. Hypertension. RADIATION DOSE: 46.99 CTDIvol (mGy) MEDICAL HISTORY : Hypertension. SURGICAL HISTORY : None. ENCOUNTER: Initial ACUITY: 2 weeks PAIN SCALE: 3/10 LOCATION: Bilateral cranial TECHNIQUE: Multiple contiguous axial images were obtained of the head. Using automated exposure control and adj ustment of the mA and/or kV according to patient size, radiation dose was kept as low as reasonably a chievable to obtain optimal diagnostic quality images. DICOM format image data is available electro nically for review and comparison. FINDINGS: There is patchy diminished attenuation in deep white matter is unchanged. No evidence of intracranial mass or hemorrhage. Nothing to suggest acute infarction. Ventricles are stable symmetric and normal. Extracranial structures are benign and intact. CONCLUSION: Stable brain appearance. No acute intracranial findings You Daniels MD on September 17, 2017 at 3:40 Board Certified Radiologist. This report was verified electronically.
[2017-09-17 03:50] VITALS: BP 183/76; PULSE 61; RESP 16; O2SAT 99
[2017-09-17 03:52] LABS: RBC, URINE 0-3 /hpf (0-3); SQUAMOUS EPITHELIAL CELL URINE 0-5 /hpf (0-5)
[2017-09-17 03:54] LABS: CHLORIDE 101 MEQ/L (98-107); SODIUM (NA) 135 MEQ/L (136-145)
--- NOTE | 2017-09-17 03:54 | RADRPT ---
EXAM DATE/TIME: 09/17/2017 03:40 [facility] COMPARISON: CHEST SINGLE AP, July 28, 2017, 20:46. CT ABDOMEN & PELVIS W CONTRAST, January 27, 2017, 19:45. INDICATIONS : Chest tightness, increased blood pressure starting today MEDICAL HISTORY : Hypertension. SURGICAL HISTORY : None. ENCOUNTER: Initial ACUITY: 1 day PAIN SCORE: 0/10 LOCATION: Bilateral chest FINDINGS: A single view of the chest demonstrates the lungs to be symmetrically aerated without evidence of mas s, infiltrate or effusion. The cardiomediastinal contours are unremarkable. Osseous structures are intact. CONCLUSION: No acute disease. You Daniels MD on September 17, 2017 at 3:51 Board Certified Radiologist. This report was verified electronically.
[2017-09-17 03:57] LABS: BICARBONATE 28.2 MEQ/L (21.0-32.0); CALCIUM 8.8 MG/DL (8.5-10.1); GLUCOSE,RANDOM 88 MG/DL (74-106); MAGNESIUM 2.5 MG/DL (1.5-2.5)
[2017-09-17 03:58] LABS: BLOOD UREA NITROGEN 16 MG/DL (7-18); PROTHROMBIN TIME - PATIENT 9.9 SEC (9.8-11.6)
[2017-09-17 04:01] LABS: CREATININE 0.97 MG/DL (0.50-1.00); GLOMERULAR FILTRATION RATE 57 ML/MIN (>89)
[2017-09-17 04:05] LABS: TROPONIN I LESS THAN 0.02 NG/ML (0.02-0.05)
[2017-09-17 04:53] VITALS: BP 158/77; PULSE 66; RESP 16; O2SAT 98
[2017-09-17] MEDS ORDERED: CLON0.1T PO (04:55)
--- NOTE | 2017-09-17 19:58 | EKG ---
Date Performed: 09/17/2017 Time Performed: 03:28:31 PTAGE: 72 years EKG: Sinus rhythm WITH FIRST DEGREE AV BLOCK ABNORMAL ECG Since the PREVIOUS TRACING , no significant change noted PREVIOUS TRACIN07/28/2017 21.13 DOCTOR: Elio Foley Interpretating Date/Time 09/17/2017 19:58:34
== END 2017-09-17 05:04 | disposition home or self-care (01) ==
LOC: PHED 22:43
DX: I10 Essential (primary) hypertension (principal); R07.89 Other chest pain; R94.31 Abnormal electrocardiogram [ECG] [EKG]; F41.9 Anxiety disorder, unspecified; F32.9 Major depressive disorder, single episode, unspecified; E78.5 Hyperlipidemia, unspecified; K21.9 Gastro-esophageal reflux disease without esophagitis
CPT/HCPCS: 70450; 71045; 80048; 81001; 82550; 83735; 84484; 85025; 85610; 85730; 93005